=== PATIENT | female | born 1965 | race Caucasian/White ===

== ENCOUNTER → 2017-01-13 | Outpatient (CLI) | payer OTHER ==
--- NOTE | 2017-01-13 08:58 | RAD ---
Indication preop. Anticipated hysterectomy. Protocol study. PA and lateral views of the chest were obtained. No prior imaging of the chest is available. The heart and pulmonary vessels appear normal. The lungs are clear. There is no pleural fluid or pneumothorax. The bony structures appear grossly intact. IMPRESSION: No acute or focal process seen in the chest
== END | disposition home or self-care (01) ==
LOC: DXRADRC 08:32
PROVIDERS: ATTEND Obstetrics & Gynecology
DX: Z01.818 Encounter for other preprocedural examination (principal); E03.9 Hypothyroidism, unspecified
CPT/HCPCS: 71020

== ENCOUNTER 2017-07-15 16:05 | Emergency (ER) | payer OTHER ==
[~2017-07-15] VITALS: Ht 174 cm; Wt 108.0 kg
[2017-07-15] MEDS ORDERED: IOHEXOL 300 MG/ML 75 ML VIAL. IV ONE (16:45)
[2017-07-15] MEDS ORDERED: IOHEXOL 240 MG/ML 50ML VIAL. PO ONE (16:45)
--- NOTE | 2017-07-15 17:40 | PHYS DOC ---
Text Text Signout obtained from Dr. Hickman at 6 PM. Patient's labs a been reviewed. Patient presents to the ED for her doctor's office for CT scan of the abdomen pelvis. Patient's CT scan of her abdomen and pelvis were unremarkable. There is no evidence of pancreatitis. No pseudocyst. No inflammatory changes around the pancreas. The remainder the CT scan did not reveal any acute abnormality or any cause for her acute pain. Patient's discomfort is currently in the midepigastric area which is likely consistent with gastritis. Patient is currently on Protonix. Patient will increase her dose to twice a day until she is able see her doctor. Patient's clinically hemodynamically stable at this time for discharged home. Patient's abdominal exam does not reveal any signs or symptoms O be consistent with an acute surgical abdomen. Patient has no peritonitis. (LIZBET ACEVEDO MD) General Chief Complaint: ABDOMINAL PAIN Stated Complaint: ABDOMINAL PAIN Time Seen by MD: 16:10 Source: patient Exam Limitations: no limitations Problems: (DRE HARRIS DO) Time Seen by MD: 18:32 Problems: (LIZBET ACEVEDO MD) History of Present Illness Initial Comments Patient is a 51-year-old female sent to the emergency department from [facility] for CT evaluation to rule out pancreatitis. I received a call from Dr. Lee at [facility] notified me that the patient presented to her today "just not feeling right." The patient was complaining of epigastric discomfort and nonspecific abdominal pain similar to prior symptoms with pancreatitis years ago. She says it feels like there is a rock in her stomach, she's had some nausea and a loose stool earlier today. Last by mouth intake was 7:30 this morning. Symptoms have been present for the past week and all are similar to prior pancreatitis. Patient's PCP relay that she had a normal EKG and lab evaluation (copies sent with the patient) and she feels the patient needs CT to rule out pancreatitis. 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 Pertinent findings from today's visit at [facility]: Magnesium 1.8, creatinine 1.06 , BUNs 14, sodium 136, potassium 3.6, amylase 48, lipase 129, white blood cells 12.1, hemoglobin 15.3, platelets 390, liver enzymes and bilirubin all normal. EKG dated today time 145: Normal sinus rhythm 70 bpm, no acute ischemic findings no STEMI. Reviewed by me. On ED arrival the patient is in no apparent distress vital signs are normal. I reviewed the above with her denies any new or changing symptoms since [facility] evaluation earlier today. Timing/Duration: 1 week, constant Severity: moderate Modifying Factors: improves with other Associated Symptoms: malaise, nausea/vomiting, other (DRE HARRIS DO) Allergies: Coded Allergies: No Known Drug Allergies (Unverified , 07/15/17) Past Medical History Medical History: other (pancreatitis, hypertension, GERD, hypothyroidism, vitamin D deficiency, insomnia,) Surgical History: other (DRE HARRIS DO) Social History Smoker: non-smoker Alcohol: none Drugs: none (DRE HARRIS DO) Review of Systems Constitutional: denies chills, denies diaphoresis, denies fever, malaise Respiratory: denies cough, denies shortness of breath Cardiovascular: denies chest pain, denies palpitations Gastrointestinal: see HPI Genitourinary: denies dysuria, denies frequency, denies hematuria Musculoskeletal: denies back pain, denies joint swelling, denies neck pain Psychiatric/Neurological: denies headache, denies numbness, denies paresthesia Hematologic/Lymphatic: denies blood clots, denies easy bleeding, denies easy bruising (DRE HARRIS DO) Physical Exam General Appearance: no apparent distress, obese Eyes: bilateral eye normal inspection, bilateral eye PERRL, bilateral eye EOMI Ear, Nose, Throat: hearing grossly normal, normal ENT inspection, normal pharynx Neck: non-tender, supple Respiratory: normal breath sounds, no respiratory distress Cardiovascular: normal peripheral pulses, regular rate, rhythm Gastrointestinal: soft (diffuse epigastric tenderness no rebound guarding or mass no distention bowel sounds are diminished) Back: no CVA tenderness, no vertebral tenderness Extremities: non-tender (is good people), no calf tenderness, pelvis stable Neurologic/Psychiatric: poly operator II-XII nml as tested, no motor/sensory deficits, alert, normal mood/affect, oriented x 3 Skin: normal color, warm/dry (DRE HARRIS DO) Orders, Labs, Meds 7642: Patient rechecked she has finished her contrast. She will now receive a GI cocktail and we will check a urine. Patient will be signed out to Dr. Acevedo 1800 shift change. See his documentation for further results and patient disposition. (DRE HARRIS DO) Departure Disposition: HOME, SELF-CARE Condition: IMPROVED Patient Instructions: Gastritis, Adult Additional Instructions: Please follow up with your family doctor for reevaluation. Return to the ER today change or any other concerns you have regarding her abdominal pain. Departure Departure: Impression: Primary Impression: Abdominal pain Additional Impression: Gastritis Disposition: HOME, SELF-CARE Condition: IMPROVED Patient Instructions: Gastritis, Adult Additional Instructions: Please follow up with your family doctor for reevaluation. Return to the ER today change or any other concerns you have regarding her abdominal pain. DRE HARRIS DO Jul 15, 2017 17:40 LIZBET ACEVEDO MD Jul 15, 2017 19:13
[2017-07-15] MEDS ORDERED: ONDANSETRON PF 4 MG/2 ML VIAL. IV ONE (17:45)
[2017-07-15] MEDS ORDERED: LIDO:MAALOX 1:1 20 ML SINGLE DOSE PO ONE (18:00)
--- NOTE | 2017-07-15 19:02 | RAD ---
CT scan of the abdomen and pelvis with contrast 07/15/2017 CLINICAL HISTORY: Abdominal pain with history of pancreatitis. TECHNIQUE: After the intravenous administration of 75 cc of Omnipaque 300 and the oral administration of contrast, contiguous, 5 mm axial sections were obtained through the abdomen and pelvis. One or more of the following individualized dose reduction techniques were utilized for this study: 1. Automated exposure control. 2. Adjustment of the mA and/or kV according to patient size. 3. Use of iterative reconstruction technique. FINDINGS: No previous imaging studies are available for comparison. Images through the lung bases demonstrate dependent subsegmental atelectasis, left greater than right. The liver, spleen, pancreas, adrenal glands and kidneys are within normal limits. No pancreatic pseudocyst is seen. No inflammatory changes are seen surrounding the pancreas. The abdominal aorta tapers normally. Surgical clips are seen within the gallbladder fossa consistent with a cholecystectomy. No free fluid or free air is seen within the abdomen. There is no evidence of bowel obstruction. Images through the pelvis demonstrate the urinary bladder distended with urine. The appendix is small and is within normal limits. No free fluid is seen. Mild S-shaped curvature of the thoracolumbar spine is noted. Degenerative changes are seen involving the lower thoracic and mid and lower lumbar spine and both hips. IMPRESSION: No acute abnormality is seen. Electronically signed by: Kam Milner MD (07/15/2017 6:59 PM) [facility]
[2017-07-15 19:16] LABS: BACTERIA,URINE FEW /HPF (0-FEW); BILIRUBIN,URINE NEG (NEG); CLARITY,URINE CLEAR; COLOR,URINE YELLOW; GLUCOSE,URINE NEG (NEG); NITRITE,URINE NEG (NEG); RBC,URINE 0 /HPF (0-2); SQUAMOUS EPITHELIAL CELL,UR MOD /LPF; UROBILINOGEN,URINE 0.2 mg/dL (0.2 mg/dL); WBC,URINE 0 /HPF (0-4)
[2017-07-15 19:20] VITALS: BP 132/71
== END 2017-07-15 19:25 | disposition home or self-care (01) ==
LOC: ER 16:05
DX: K29.70 Gastritis, unspecified, without bleeding (principal); I10 Essential (primary) hypertension; K21.9 Gastro-esophageal reflux disease without esophagitis; E03.9 Hypothyroidism, unspecified; E55.9 Vitamin D deficiency, unspecified; G47.00 Insomnia, unspecified
CPT/HCPCS: 74177; 81001; 96374; 99285; J2405; Q9966; Q9967

== ENCOUNTER → 2020-07-14 | Outpatient (CLI) | payer OTHER ==
[~2020-07-14] MED LIST: ESTR1TAB15 PO; ESZO2TAB21 PO; LEVO100T5 PO; PANT40TA3 PO
== END ==
LOC: LAB 07:45
PROVIDERS: ATTEND Nurse Anesthetist, Certified Registered
DX: Z01.812 Encounter for preprocedural laboratory examination (principal); Z20.828 Contact with and (suspected) exposure to other viral communicable diseases
CPT/HCPCS: U0003

== ENCOUNTER → 2020-07-18 | Day surgery (SDC) | payer OTHER ==
[~2020-07-18] MED LIST changes: +IPRATRPIUM/ALBUTEROL 0.5/2.5MG 3 ML NEBU. NEB PRN; +IV RINGERS SOLUTION,LACTATED 1,000 ML IV SCH; +LIDOCAINE 2% PF 5 ML VIAL. ONE; +MIDAZOLAM HCL PF 2 MG/2 ML VIAL. IV ONE; +ONDANSETRON PF 4 MG/2 ML VIAL. IV PRN; +PROPOFOL 10,000 MCG/ML (20ML) VIAL IV ONE
[2020-07-18 08:43] VITALS: BP 133/85
== END | disposition home or self-care (01) ==
LOC: SURG 06:40
PROVIDERS: ATTEND Emergency Medicine
DX: Z12.11 Encounter for screening for malignant neoplasm of colon (principal); K63.5 Polyp of colon; I10 Essential (primary) hypertension; E03.9 Hypothyroidism, unspecified; G47.00 Insomnia, unspecified; K21.9 Gastro-esophageal reflux disease without esophagitis; Z79.899 Other long term (current) drug therapy; Z98.890 Other specified postprocedural states
CPT/HCPCS: 45380; 45385; J2001; J2704; J7120